=== PATIENT | female | born 1990 | race Caucasian/White ===

== ENCOUNTER 2022-05-24 21:49 | Emergency (ER) | payer OTHER ==
[~2022-05-24] VITALS: Ht 162.6 cm; Wt 65.8 kg
[2022-05-24] MEDS ORDERED: SYNTHROID75 MCG PO (23:59)
[2022-05-25] MEDS ORDERED: VITAMIN D310 MC4 PO
[2022-05-25] MEDS ORDERED: ACETAMINOPHEN650 M2 PO (03:26)
== END 2022-05-25 03:34 | disposition home or self-care (01) ==
LOC: ER 21:49
DX: O20.9 Hemorrhage in early pregnancy, unspecified (principal); Z3A.08 8 weeks gestation of pregnancy

== ENCOUNTER 2022-12-07 21:59 | Inpatient (IN) | payer OTHER ==
[~2022-12-07] VITALS: Ht 162.6 cm; Wt 80.3 kg
[~2022-12-07 21:59] MED LIST: ACETAMINOPHEN650 M2 PO; SYNTHROID75 MCG PO; VITAMIN D310 MC4 PO
== END 2022-12-09 12:48 | disposition left against medical advice (07) | DRG 833 ==
LOC: LDR 21:59
PROVIDERS: ADMIT Obstetrics & Gynecology; ATTEND Obstetrics & Gynecology
PROC: 4A1HXCZ Monitoring of Products of Conception, Cardiac Rate, External Approach (ICD-10-PCS; principal; 2022-12-07)
DX: O13.3 Gestational [pregnancy-induced] hypertension without significant proteinuria, third trimester (principal); Z3A.35 35 weeks gestation of pregnancy; Z20.822 Contact with and (suspected) exposure to COVID-19

== ENCOUNTER 2022-12-11 11:05 | Inpatient (IN) | payer OTHER ==
[~2022-12-11] VITALS: Ht 162.6 cm; Wt 80.3 kg
[2022-12-13] MEDS ORDERED: PRENATAL TABLE1 EAC1 PO (22:51)
[2022-12-18] MEDS ORDERED: NAPR500T14 PO (08:45)
== END 2022-12-18 14:25 | disposition home or self-care (01) | DRG 807 ==
LOC: NST 11:05 → LDR 12-13 22:04 → OB/GYN 12-13 22:04 → LDR 12-15 20:29 → OB/GYN 12-16 21:01
PROVIDERS: ADMIT Obstetrics & Gynecology; ATTEND Obstetrics & Gynecology
PROC: 4A1HXCZ Monitoring of Products of Conception, Cardiac Rate, External Approach (ICD-10-PCS; 2022-12-15)
PROC: 3E0P7VZ Introduction of Hormone into Female Reproductive, Via Natural or Artificial Opening (ICD-10-PCS; 2022-12-15)
PROC: 10E0XZZ Delivery of Products of Conception, External Approach (ICD-10-PCS; principal; 2022-12-16)
PROC: 0KQM0ZZ Repair Perineum Muscle, Open Approach (ICD-10-PCS; 2022-12-16)
PROC: 3E033VJ Introduction of Other Hormone into Peripheral Vein, Percutaneous Approach (ICD-10-PCS; 2022-12-16)
DX: O70.1 Second degree perineal laceration during delivery (principal); Z37.0 Single live birth; O13.4 Gestational [pregnancy-induced] hypertension without significant proteinuria, complicating childbirth; Z3A.37 37 weeks gestation of pregnancy; Z20.822 Contact with and (suspected) exposure to COVID-19